=== PATIENT | male | born 1980 | race Caucasian/White ===

== ENCOUNTER 2016-05-06 08:27 | Emergency (ER) | payer MEDICARE, OTHER | END 2016-05-06 10:51 | disposition home or self-care (01) | LOC: D.ER 08:27 | DX: L02.01 Cutaneous abscess of face (principal); F32.9 Major depressive disorder, single episode, unspecified; K21.9 Gastro-esophageal reflux disease without esophagitis ==

== ENCOUNTER 2016-09-02 18:09 | Emergency (ER) | payer MEDICARE, OTHER | END 2016-09-02 20:31 | disposition home or self-care (01) | LOC: D.ER 18:09 | DX: S61.452A Open bite of left hand, initial encounter (principal); W54.0XXA Bitten by dog, initial encounter; Y93.89 Activity, other specified; Y92.89 Other specified places as the place of occurrence of the external cause; S61.432A Puncture wound without foreign body of left hand, initial encounter; F32.9 Major depressive disorder, single episode, unspecified; K21.9 Gastro-esophageal reflux disease without esophagitis; F17.200 Nicotine dependence, unspecified, uncomplicated ==